=== PATIENT | female | born 1960 | race American Indian/Alaskan Native ===

== ENCOUNTER 2020-03-24 09:34 | Emergency (ER) | payer SELFPAY ==
[2020-03-24 09:40] VITALS: BP 114/81
--- NOTE | 2020-03-24 11:35 | Emergency Department Report ---
ED Fall HPI - General Chief Complaint: Back Pain/Injury Stated Complaint: FALL Time Seen by Provider: 03/24/20 10:26 Source: patient Mode of arrival: Ambulatory - History of Present Illness Initial Comments: 60-year-old -[place] female presents to the emergency room stating that she has pain to the right hip. Patient states she had a fall 3 weeks ago onto concrete. She reports her right side pain mostly in her hip is having trouble ambulating. Been taking intermittent Advil PM for sleep. She denies any past medical history currently takes no medications on a daily basis has no known drug allergies. She reports the pain is worse with sitting up and walking and better with lying on her left side. MD Complaint: fall Onset/Timin -: week(s) Fall From: standing When Fall Occurred: # days SOUND TESTER (3 weeks) Loss of Consciousness: none Prolonged Down Time?: no Symptoms Prior to Fall: none Location: buttocks Location - Extremities: Right: Shoulder, Thigh (hip) Severity scale (0 -10): 4 Quality: aching Context: tripped/slipped Associated Symptoms: denies - Related Data Previous Rx's Medication Instructions Recorded Last Taken Type Meloxicam [Mobic] 7.5 mg PO QDAY #30 tablet 03/24/20 Unknown Rx Allergies Allergy/AdvReac Type Severity Reaction Status Date / Time No Known Allergies Allergy Unverified 03/24/20 09:40 ED Review of Systems ROS: Stated complaint: FALL Other details as noted in HPI Comment: All other systems reviewed and negative ED Past Medical Hx - Past Medical History Previous Medical History?: No - Surgical History Past Surgical History?: No - Social History Smoking Status: Current Every Day Smoker Substance Use Type: None - Medications Home Medications: Home Medications Medication Instructions Recorded Confirmed Last Taken Type Meloxicam [Mobic] 7.5 mg PO QDAY #30 tablet 03/24/20 Unknown Rx ED Physical Exam - General Limitations: No Limitations General appearance: alert, in no apparent distress - Head Head exam: Present: atraumatic, normocephalic - Eye Eye exam: Present: normal appearance - ENT ENT exam: Present: mucous membranes moist - Neck Neck exam: Present: normal inspection, full ROM - Respiratory Respiratory exam: Present: normal lung sounds bilaterally. Absent: respiratory distress - Cardiovascular Cardiovascular Exam: Present: regular rate, normal rhythm. Absent: systolic murmur, diastolic murmur, rubs, gallop - Expanded Upper Extremity Exam Right Shoulder Exam: Present: full ROM, tenderness. Absent: swelling, abrasion, laceration, ecchymosis Upper Arm exam: Present: full ROM, tenderness. Absent: swelling, abrasion Elbow exam: Present: normal inspection, full ROM. Absent: tenderness, swelling Forearm Wrist exam: Present: normal inspection, full ROM. Absent: tenderness, swelling Hand Wrist exam: Present: normal inspection, full ROM. Absent: tenderness, swelling Vascular: Present: normal capillary refill. Absent: vascular compromise - Back Exam Back exam: Present: full ROM, paraspinal tenderness. Absent: CVA tenderness (R), CVA tenderness (L), vertebral tenderness - Neurological Exam Neurological exam: Present: alert, oriented X3 - Psychiatric Psychiatric exam: Present: normal affect, normal mood - Skin Skin exam: Present: warm, dry, intact, normal color. Absent: rash ED Course Vital Signs 03/24/20 09:36 Temperature 98.2 F Pulse Rate 87 Respiratory 18 Rate Blood Pressure 114/81 O2 Sat by Pulse 100 Oximetry ED Medical Decision Making - Radiology Data Radiology results: report reviewed Patient: CHER CROCKER MR#: [id number] : 1960 Acct:[id number] Age/Sex: 60 / F ADM Date: 03/24/20 Loc: ED Attending Dr: Ordering Physician: MARGAUX JUNG Date of Service: 03/24/20 Procedure(s): XR hip 2-3V RT Accession Number(s): [id number] cc: MARGAUX JUNG Fluoro Time In Minutes: RIGHT HIP 2 VIEW(S) INDICATION / CLINICAL INFORMATION: fall having right hip pain COMPARISON: None available. FINDINGS: BONES / JOINT(S): No acute fracture or subluxation. Superior acetabular osteophytosis raises the possibility of a pincer-type deformity, which can this patient to femoroacetabular impingement. SOFT TISSUES: No significant abnormality. ADDITIONAL FINDINGS: None. Signer Name: Valeri Barahona MD Signed: 03/24/2020 12:19 PM Workstation Name: [id number] Transcribed By: SS Dictated By: VALERI BARAHONA Electronically Authenticated By: VALERI BARAHONA Signed Date/Time: 03/24/201218 DD/ 17 TD/TT: - Medical Decision Making 60-year-old -[place] female presents to the emergency room stating that she has pain to the right hip. Patient states she had a fall 3 weeks ago onto concrete. She reports her right side pain mostly in her hip is having trouble ambulating. Been taking intermittent Advil PM for sleep. She denies any past medical history currently takes no medications on a daily basis has no known drug allergies. She reports the pain is worse with sitting up and walking and better with lying on her left side. Patient was offered pain medication but she declined. X-ray has been ordered of right hip. Critical care attestation.: If time is entered above; I have spent that time in minutes in the direct care of this critically ill patient, excluding procedure time. 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 I have prescribed you Mobic which is a anti-inflammatory medication. Prescriptions: Meloxicam [Mobic] 7.5 mg PO QDAY #30 tablet Referrals: PRIMARY MD MAL [Primary Care Provider] - 3-5 Days VALORIE JUAREZ MD [Staff Physician] - 3-5 Days Forms: Work/School Release Form(ED)
--- NOTE | 2020-03-24 12:24 | XRay Report ---
RIGHT HIP 2 VIEW(S) INDICATION / CLINICAL INFORMATION: fall having right hip pain COMPARISON: None available. FINDINGS: BONES / JOINT(S): No acute fracture or subluxation. Superior acetabular osteophytosis raises the poss ibility of a pincer-type deformity, which can this patient to femoroacetabular impingement. SOFT TISSUES: No significant abnormality. ADDITIONAL FINDINGS: None. Signer Name: Gallito Barahona MD Signed: 03/24/2020 12:19 PM Workstation Name: [id number]
== END 2020-03-24 13:06 | disposition home or self-care (01) ==
LOC: ED 09:34
DX: M25.751 Osteophyte, right hip (principal); F17.200 Nicotine dependence, unspecified, uncomplicated; Z79.899 Other long term (current) drug therapy; W18.30XA Fall on same level, unspecified, initial encounter; Y93.89 Activity, other specified; Y92.89 Other specified places as the place of occurrence of the external cause; Y99.8 Other external cause status
CPT/HCPCS: 99283

== ENCOUNTER 2020-12-19 12:58 | Emergency (ER) | payer SELFPAY ==
[2020-12-19 14:09] VITALS: BP 98/70
== END 2020-12-19 23:04 ==
LOC: ED 12:58
DX: F32.9 Major depressive disorder, single episode, unspecified (principal); Z53.21 Procedure and treatment not carried out due to patient leaving prior to being seen by health care provider